=== PATIENT | female | born 1955 | race Caucasian/White ===

== ENCOUNTER 2017-03-23 00:28 | Day surgery (SDC) | payer MEDICARE, OTHER ==
[~2017-03-23 00:28] MED LIST: ALEN70 PO; AMAN100 PO; AZAT50 PO; BACL20 PO; DOCU100 PO; ERGO50000 PO; FISH1000 PO; Flonase 0.05% N16 GM; GABA300 PO; HYDACE5 PO; IBUP600 PO; IBUP800 PO; LEVFLO500 PO; LISI20 PO; METPHE10 PO; MIRT15ST MM; Norco 5-325 Ta1 EACH PO; OXYB5 PO; PANT40 PO; PRAV20 PO; SOLUMEDROL
[2017-09-08] MEDS ORDERED: Solu-Medrol1000 MG IV (11:57)
== END 2017-03-23 11:48 | disposition home or self-care (01) ==
LOC: ATC 00:28
DX: G35 Multiple sclerosis (principal)
CPT/HCPCS: 96365; J1642; J2930

== ENCOUNTER 2017-04-13 00:27 | Day surgery (SDC) | payer MEDICARE, OTHER ==
[2017-09-08] MEDS ORDERED: Solu-Medrol1000 MG IV (11:57)
== END 2017-04-13 11:06 | disposition home or self-care (01) ==
LOC: ATC 00:27
DX: G35 Multiple sclerosis (principal); Z79.899 Other long term (current) drug therapy
CPT/HCPCS: 96365; J1642; J2930

== ENCOUNTER 2017-05-05 00:10 | Day surgery (SDC) | payer MEDICARE, OTHER ==
[2017-09-08] MEDS ORDERED: Solu-Medrol1000 MG IV (11:57)
== END 2017-05-05 12:03 | disposition home or self-care (01) ==
LOC: ATC 00:10
DX: G35 Multiple sclerosis (principal)
CPT/HCPCS: 96365; J1642; J2930

== ENCOUNTER 2017-05-25 00:22 | Day surgery (SDC) | payer MEDICARE, OTHER ==
[2017-09-08] MEDS ORDERED: Solu-Medrol1000 MG IV (11:57)
== END 2017-05-25 11:33 | disposition home or self-care (01) ==
LOC: ATC 00:22
DX: G35 Multiple sclerosis (principal)
CPT/HCPCS: 96365; J1642; J2930

== ENCOUNTER 2017-07-07 01:03 | Day surgery (SDC) | payer MEDICARE, OTHER | END 2017-07-07 11:38 | disposition home or self-care (01) | LOC: ATC 01:03 | DX: G35 Multiple sclerosis (principal); Z79.899 Other long term (current) drug therapy | CPT/HCPCS: J1642; J2930 ==

== ENCOUNTER 2017-07-27 00:28 | Day surgery (SDC) | payer MEDICARE, OTHER | END 2017-07-27 11:39 | disposition home or self-care (01) | LOC: ATC 00:28 | DX: G35 Multiple sclerosis (principal); I10 Essential (primary) hypertension; E78.5 Hyperlipidemia, unspecified | CPT/HCPCS: 96365; J1642; J2930 ==

== ENCOUNTER 2017-08-17 00:37 | Day surgery (SDC) | payer MEDICARE, OTHER | END 2017-08-17 11:20 | disposition home or self-care (01) | LOC: ATC 00:37 | DX: G35 Multiple sclerosis (principal); I10 Essential (primary) hypertension; E78.5 Hyperlipidemia, unspecified | CPT/HCPCS: 96365; J1642; J2930 ==

== ENCOUNTER 2017-11-30 00:49 | Day surgery (SDC) | payer MEDICARE, OTHER ==
[~2017-11-30 00:49] MED LIST changes: +Solu-Medrol1000 MG IV
== END 2017-11-30 11:29 | disposition home or self-care (01) ==
LOC: ATC 00:49
DX: G35 Multiple sclerosis (principal)
CPT/HCPCS: 96365; J1642; J2930

== ENCOUNTER 2018-02-22 00:46 | Day surgery (SDC) | payer MEDICARE, OTHER | END 2018-02-22 12:00 | disposition home or self-care (01) | LOC: ATC 00:46 | DX: G35 Multiple sclerosis (principal); Z79.899 Other long term (current) drug therapy | CPT/HCPCS: 96365; J1642; J2930 ==

== ENCOUNTER 2018-03-15 00:14 | Day surgery (SDC) | payer MEDICARE, OTHER | END 2018-03-15 11:18 | disposition home or self-care (01) | LOC: ATC 00:14 | DX: G35 Multiple sclerosis (principal); Z79.899 Other long term (current) drug therapy | CPT/HCPCS: 96365; J1642; J2930 ==

== ENCOUNTER 2018-04-05 00:12 | Day surgery (SDC) | payer MEDICARE, OTHER | END 2018-04-05 11:27 | disposition home or self-care (01) | LOC: ATC 00:12 | DX: G35 Multiple sclerosis (principal); Z79.899 Other long term (current) drug therapy | CPT/HCPCS: 96365; J1642; J2930 ==

== ENCOUNTER 2018-04-26 00:23 | Day surgery (SDC) | payer MEDICARE, OTHER | END 2018-04-26 11:40 | disposition home or self-care (01) | LOC: ATC 00:23 | DX: G35 Multiple sclerosis (principal); Z79.899 Other long term (current) drug therapy; I10 Essential (primary) hypertension; E78.5 Hyperlipidemia, unspecified; M81.0 Age-related osteoporosis without current pathological fracture; F32.9 Major depressive disorder, single episode, unspecified; F17.210 Nicotine dependence, cigarettes, uncomplicated | CPT/HCPCS: 96365; J1642; J2930 ==

== ENCOUNTER 2018-05-17 00:09 | Day surgery (SDC) | payer MEDICARE, OTHER | END 2018-05-17 11:10 | disposition home or self-care (01) | LOC: ATC 00:09 | DX: G35 Multiple sclerosis (principal); Z79.899 Other long term (current) drug therapy | CPT/HCPCS: 96365; J1642; J2930 ==

== ENCOUNTER 2018-07-19 00:05 | Day surgery (SDC) | payer MEDICARE, OTHER ==
[2018-07-19] MEDS ORDERED: BUPR75 PO (11:32)
== END 2018-07-19 23:01 | disposition home or self-care (01) ==
LOC: ATC 00:05
DX: G35 Multiple sclerosis (principal); I10 Essential (primary) hypertension; E78.5 Hyperlipidemia, unspecified; Z79.899 Other long term (current) drug therapy; Z88.5 Allergy status to narcotic agent
CPT/HCPCS: 96365; J1642; J2930

== ENCOUNTER 2018-08-30 00:04 | Day surgery (SDC) | payer MEDICARE, OTHER ==
[~2018-08-30 00:04] MED LIST changes: +BUPR75 PO
== END 2018-08-30 11:17 | disposition home or self-care (01) ==
LOC: ATC 00:04
DX: G35 Multiple sclerosis (principal); E78.5 Hyperlipidemia, unspecified; I10 Essential (primary) hypertension; F17.210 Nicotine dependence, cigarettes, uncomplicated; Z79.899 Other long term (current) drug therapy
CPT/HCPCS: 96365; J1642; J2930

== ENCOUNTER → 2018-09-14 | Outpatient (CLI) | payer MEDICARE, OTHER | END | disposition home or self-care (01) | LOC: LAB SHORT 08:03 → PLD 08:03 | DX: L98.9 Disorder of the skin and subcutaneous tissue, unspecified (principal); L57.0 Actinic keratosis | CPT/HCPCS: 88305 ==

== ENCOUNTER 2018-09-20 00:44 | Day surgery (SDC) | payer MEDICARE, OTHER | END 2018-09-20 12:12 | disposition home or self-care (01) | LOC: ATC 00:44 | DX: G35 Multiple sclerosis (principal); E55.9 Vitamin D deficiency, unspecified; E78.5 Hyperlipidemia, unspecified; F32.9 Major depressive disorder, single episode, unspecified; I10 Essential (primary) hypertension; J44.9 Chronic obstructive pulmonary disease, unspecified; F17.210 Nicotine dependence, cigarettes, uncomplicated; Z79.1 Long term (current) use of non-steroidal anti-inflammatories (NSAID); Z79.51 Long term (current) use of inhaled steroids; Z79.899 Other long term (current) drug therapy; Z88.5 Allergy status to narcotic agent; Z66 Do not resuscitate | CPT/HCPCS: 96365; J1642; J2930 ==

== ENCOUNTER 2018-10-11 00:09 | Day surgery (SDC) | payer MEDICARE, OTHER | END 2018-10-11 11:47 | disposition home or self-care (01) | LOC: ATC 00:09 | DX: G35 Multiple sclerosis (principal); E78.5 Hyperlipidemia, unspecified; E55.9 Vitamin D deficiency, unspecified; F32.9 Major depressive disorder, single episode, unspecified; K59.00 Constipation, unspecified; Z79.899 Other long term (current) drug therapy | CPT/HCPCS: 96365; J1642; J2930 ==

== ENCOUNTER 2018-11-01 00:21 | Day surgery (SDC) | payer MEDICARE, OTHER ==
--- NOTE | 2018-11-01 11:18 | NUR ---
STOP TIME FOR SOLUMEDROL:" 1115
== END 2018-11-01 11:15 | disposition home or self-care (01) ==
LOC: ATC 00:21
DX: G35 Multiple sclerosis (principal); E78.5 Hyperlipidemia, unspecified; Z79.899 Other long term (current) drug therapy
CPT/HCPCS: 96365; J1642; J2930

== ENCOUNTER 2018-11-22 00:07 | Day surgery (SDC) | payer MEDICARE, OTHER | END 2018-11-22 11:20 | disposition home or self-care (01) | LOC: ATC 00:07 | DX: G35 Multiple sclerosis (principal); I10 Essential (primary) hypertension; E78.5 Hyperlipidemia, unspecified; Z79.899 Other long term (current) drug therapy; Z88.5 Allergy status to narcotic agent | CPT/HCPCS: 96365; J1642; J2930 ==

== ENCOUNTER 2018-12-13 00:42 | Day surgery (SDC) | payer MEDICARE, OTHER | END 2018-12-13 11:28 | disposition home or self-care (01) | LOC: ATC 00:42 | DX: G35 Multiple sclerosis (principal); E78.5 Hyperlipidemia, unspecified; J44.9 Chronic obstructive pulmonary disease, unspecified; Z79.899 Other long term (current) drug therapy; Z87.891 Personal history of nicotine dependence | CPT/HCPCS: 96365; J1642; J2930 ==

== ENCOUNTER 2019-01-03 00:16 | Day surgery (SDC) | payer MEDICARE, OTHER | END 2019-01-03 12:00 | disposition home or self-care (01) | LOC: ATC 00:16 | DX: G35 Multiple sclerosis (principal); F32.9 Major depressive disorder, single episode, unspecified; E78.5 Hyperlipidemia, unspecified; I10 Essential (primary) hypertension; F90.9 Attention-deficit hyperactivity disorder, unspecified type; J44.9 Chronic obstructive pulmonary disease, unspecified; F17.210 Nicotine dependence, cigarettes, uncomplicated; Z88.5 Allergy status to narcotic agent; Z91.048 Other nonmedicinal substance allergy status; Z79.899 Other long term (current) drug therapy | CPT/HCPCS: 96374; J1642; J2930 ==

== ENCOUNTER 2019-01-24 00:04 | Day surgery (SDC) | payer MEDICARE, OTHER | END 2019-01-24 11:34 | disposition home or self-care (01) | LOC: ATC 00:04 | DX: G35 Multiple sclerosis (principal); I10 Essential (primary) hypertension; J44.9 Chronic obstructive pulmonary disease, unspecified; E78.5 Hyperlipidemia, unspecified; F32.9 Major depressive disorder, single episode, unspecified; F90.9 Attention-deficit hyperactivity disorder, unspecified type; F17.210 Nicotine dependence, cigarettes, uncomplicated; Z79.899 Other long term (current) drug therapy; Z88.5 Allergy status to narcotic agent; Z91.048 Other nonmedicinal substance allergy status | CPT/HCPCS: 96365; J1642; J2930 ==

== ENCOUNTER 2019-02-14 07:09 | Day surgery (SDC) | payer MEDICARE, OTHER | END 2019-02-14 11:32 | disposition home or self-care (01) | LOC: ATC 07:09 | DX: G35 Multiple sclerosis (principal); I10 Essential (primary) hypertension; J44.9 Chronic obstructive pulmonary disease, unspecified; M81.0 Age-related osteoporosis without current pathological fracture; E55.9 Vitamin D deficiency, unspecified; E78.5 Hyperlipidemia, unspecified; F32.9 Major depressive disorder, single episode, unspecified; F90.9 Attention-deficit hyperactivity disorder, unspecified type; F17.210 Nicotine dependence, cigarettes, uncomplicated; Z79.899 Other long term (current) drug therapy; Z88.5 Allergy status to narcotic agent; Z91.048 Other nonmedicinal substance allergy status | CPT/HCPCS: 96365; J1642; J2930 ==

== ENCOUNTER 2019-03-07 00:04 | Day surgery (SDC) | payer MEDICARE, OTHER | END 2019-03-07 11:12 | disposition home or self-care (01) | LOC: ATC 00:04 | DX: G35 Multiple sclerosis (principal); I10 Essential (primary) hypertension; J44.9 Chronic obstructive pulmonary disease, unspecified; M81.0 Age-related osteoporosis without current pathological fracture; E55.9 Vitamin D deficiency, unspecified; E78.5 Hyperlipidemia, unspecified; F32.9 Major depressive disorder, single episode, unspecified; F90.9 Attention-deficit hyperactivity disorder, unspecified type; F17.210 Nicotine dependence, cigarettes, uncomplicated; Z88.5 Allergy status to narcotic agent; Z88.8 Allergy status to other drugs, medicaments and biological substances; Z99.3 Dependence on wheelchair; Z79.82 Long term (current) use of aspirin; Z79.1 Long term (current) use of non-steroidal anti-inflammatories (NSAID); Z79.899 Other long term (current) drug therapy | CPT/HCPCS: 96365; J1642; J2930 ==

== ENCOUNTER 2019-03-28 00:10 | Day surgery (SDC) | payer MEDICARE, OTHER | END 2019-03-28 11:26 | disposition home or self-care (01) | LOC: ATC 00:10 | DX: G35 Multiple sclerosis (principal); I10 Essential (primary) hypertension; J44.9 Chronic obstructive pulmonary disease, unspecified; E78.5 Hyperlipidemia, unspecified; E55.9 Vitamin D deficiency, unspecified; F32.9 Major depressive disorder, single episode, unspecified; F90.9 Attention-deficit hyperactivity disorder, unspecified type; K59.00 Constipation, unspecified; M81.0 Age-related osteoporosis without current pathological fracture; F17.210 Nicotine dependence, cigarettes, uncomplicated; R35.0 Frequency of micturition; E78.00 Pure hypercholesterolemia, unspecified; M40.209 Unspecified kyphosis, site unspecified; F41.9 Anxiety disorder, unspecified; Z79.82 Long term (current) use of aspirin; Z79.899 Other long term (current) drug therapy; Z88.5 Allergy status to narcotic agent; Z88.8 Allergy status to other drugs, medicaments and biological substances | CPT/HCPCS: 96365; J1642; J2930 ==

== ENCOUNTER 2019-05-09 00:14 | Day surgery (SDC) | payer MEDICARE, OTHER ==
--- NOTE | 2019-05-09 11:34 | NUR ---
PT REPORTS NOT FEELING WELL TODAY. T=98.4, WHICH PT REPORTS IS A "FEVER" FOR HER. NORMAL TEMP PER PT AROUND 96.
== END 2019-05-09 11:40 | disposition home or self-care (01) ==
LOC: ATC 00:14
DX: G35 Multiple sclerosis (principal); I10 Essential (primary) hypertension; F32.9 Major depressive disorder, single episode, unspecified; E78.5 Hyperlipidemia, unspecified; F17.210 Nicotine dependence, cigarettes, uncomplicated; J44.9 Chronic obstructive pulmonary disease, unspecified; Z79.899 Other long term (current) drug therapy; Z88.5 Allergy status to narcotic agent
CPT/HCPCS: J1642; J2930

== ENCOUNTER 2019-05-12 09:47 | Inpatient (IN) | payer MEDICARE, OTHER ==
[~2019-05-12] VITALS: Ht 165.1 cm; Wt 76.1 kg
[2019-05-12 10:54] LABS: Hematocrit 39.4 % (33.0-51.0); Hemoglobin 12.7 g/dL (11.5-16.0); Mean Corpuscular HGB 31.1 pg (26.0-34.0); Mean Corpuscular HGB Conc 32.2 g/dL (31.5-36.5); Mean Corpuscular Volume 97 fL (80-100); Mean Platelet Volume 10.4 fL (9.1-12.4); Platelet Count 300 K/mm3 (150-400); RDW Coefficient Variation 15.9 % (11.7-14.2); RDW Standard Deviation 56.4 fL (35.1-46.3); Red Blood Cell Count 4.08 M/mm3 (3.80-5.20); White Blood Cell Count 9.95 K/mm3 (4.00-11.30)
[2019-05-12 11:11] LABS: Alanine Aminotransfer (ALT/SGP 60 U/L (12-78); Albumin/Globulin Ratio 0.7 (0.8-1.8); Alk Phos 98 U/L (50-136); Anion Gap 11 mmol/L (6-16); Aspartate Aminotrans (AST/SGOT 40 U/L (12-37); Bilirubin, Total 0.6 mg/dL (0.1-1.0); Blood Urea Nitrogen 12 mg/dL (8-24); Bun/Creatinine Ratio 22.8 (12.0-20.0); CO2, Blood 22 mmol/L (21-32); Calcium, Blood 8.7 mg/dL (8.5-10.1); Chloride, Blood 107 mmol/L (98-108); Creatinine, Blood 0.53 mg/dL (0.40-1.00); Globulin, Blood 4.4 g/dL (2.2-4.0); Glomerular Filtration Rate >60 (60-); Glucose, Blood 100 mg/dL (70-99); Potassium, Blood 3.4 mmol/L (3.5-5.5); Sodium, Blood 140 mmol/L (136-145); Total Protein, Blood 7.4 g/dL (6.4-8.2)
[2019-05-12 11:22] LABS: BAND PERCENT MAN 17 % (0-8); BASOPHILS PERCENT MAN 0 % (0-2); EOSINOPHILS PERCENT MAN 0 % (0-6); LYMPHOCYTES ABSOLUTE MAN 1.19 K/mm3 (0.84-5.20); LYMPHOCYTES PERCENT MAN 12 % (21-46); MONOCYTES ABSOLUTE MAN 0.69 K/mm3 (0.16-1.47); MONOCYTES PERCENT MAN 7 % (4-13); NEUTROPHILS ABSOLUTE MAN 8.05 K/mm3 (1.96-9.15); SEG NEUTROPHILS PERCENT MAN 64 % (41-73); TOTAL CELLS COUNTED 100
[2019-05-12] MEDS ORDERED: PEPCID40 MG PO (12:25)
[2019-05-12] MEDS ORDERED: BUPROPION XL150 M1 PO (12:25)
[2019-05-12] MEDS ORDERED: METPHE20 PO (12:26)
[2019-05-12 12:37] LABS: Adenovirus Not Detected (NOT DETECT); Bordetella pertussis Not Detected (NOT DETECT); Chlamydophila pneumoniae Not Detected (NOT DETECT); Coronavirus 229E Not Detected (NOT DETECT); Coronavirus HKU1 Not Detected (NOT DETECT); Coronavirus NL63 Not Detected (NOT DETECT); Coronavirus OC43 Not Detected (NOT DETECT); Human Metapneumovirus Detected (NOT DETECT); Human Rhinovirus/Enterovirus Not Detected (NOT DETECT); Influenza A/2009-H1 Not Detected (NOT DETECT); Influenza A/H1 Not Detected (NOT DETECT); Influenza A/H3 Not Detected (NOT DETECT); Influenza B Not Detected (NOT DETECT); Mycoplasma pneumoniae Not Detected (NOT DETECT); Parainfluenza Virus 1 Not Detected (NOT DETECT); Parainfluenza Virus 2 Not Detected (NOT DETECT); Parainfluenza Virus 3 Not Detected (NOT DETECT); Parainfluenza Virus 4 Not Detected (NOT DETECT); Respiratory Syncytial Virus Not Detected (NOT DETECT)
[2019-05-12] MEDS ORDERED: IBUP800 PO (21:54)
[2019-05-12] MEDS ORDERED: Aspirin EC81 MG PO (21:56)
--- NOTE | 2019-05-13 04:26 | NUR ---
SHIFT SUMMARY ASSUMED CARE OF PT AT 1999. PT IS A/O X4, DENIES N/T IN EXTREMITIES. HEART SOUNDS REGULAR, TELE SHOWS SINUS AT 72, DENIES CP AT THIS TIME. LUNG SOUNDS CRACKLES AT THE BASES AND SLIGHT WHEEZES T/O, PT ON 2L NC, NORMALLY ON RA, PT STATES THAT SHE IS HAVING SOME SOB. PT IS TOTALLY DEPENDENT FOR CARE, PT HAS A ARCHITECTURAL DRAFTER DURING THE DAY. PT IS INCONTINENT OF BLADDER AND BOWEL. PT HAS BEEN HAVING HOT AND COLD FLASHES, PT STATES THAT SHE HAS THEM AT HOME BUT NOT TO THIS EXTREME. PT SLEPT T/O THE NIGHT, NO ACUTE CHANGES. CALL LIGHT IN REACH, BED IN LOWEST POSTION, WILL CONTINUE TO MONITOR UNTIL DAYSHIFT NURSE ARRIVES.
[2019-05-13 05:56] LABS: Hematocrit 36.6 % (33.0-51.0); Hemoglobin 11.6 g/dL (11.5-16.0); Mean Corpuscular HGB 30.7 pg (26.0-34.0); Mean Corpuscular HGB Conc 31.7 g/dL (31.5-36.5); Mean Corpuscular Volume 97 fL (80-100); Mean Platelet Volume 10.8 fL (9.1-12.4); Platelet Count 275 K/mm3 (150-400); RDW Coefficient Variation 16.2 % (11.7-14.2); RDW Standard Deviation 58.8 fL (35.1-46.3); Red Blood Cell Count 3.78 M/mm3 (3.80-5.20); White Blood Cell Count 12.95 K/mm3 (4.00-11.30)
[2019-05-13 06:15] LABS: BAND PERCENT MAN 18 % (0-8); BASOPHILS PERCENT MAN 0 % (0-2); EOSINOPHILS PERCENT MAN 0 % (0-6); LYMPHOCYTES ABSOLUTE MAN 1.81 K/mm3 (0.84-5.20); LYMPHOCYTES PERCENT MAN 14 % (21-46); MONOCYTES ABSOLUTE MAN 0.51 K/mm3 (0.16-1.47); MONOCYTES PERCENT MAN 4 % (4-13); NEUTROPHILS ABSOLUTE MAN 10.61 K/mm3 (1.96-9.15); SEG NEUTROPHILS PERCENT MAN 64 % (41-73); TOTAL CELLS COUNTED 100
[2019-05-13 06:23] LABS: Alanine Aminotransfer (ALT/SGP 54 U/L (12-78); Albumin, Blood 2.6 g/dL (3.4-5.0); Albumin/Globulin Ratio 0.6 (0.8-1.8); Alk Phos 79 U/L (50-136); Anion Gap 11 mmol/L (6-16); Aspartate Aminotrans (AST/SGOT 39 U/L (12-37); Bilirubin, Total 0.5 mg/dL (0.1-1.0); Blood Urea Nitrogen 15 mg/dL (8-24); Bun/Creatinine Ratio 35.3 (12.0-20.0); CO2, Blood 21 mmol/L (21-32); Calcium, Blood 8.5 mg/dL (8.5-10.1); Chloride, Blood 110 mmol/L (98-108); Creatinine, Blood 0.43 mg/dL (0.40-1.00); Globulin, Blood 4.3 g/dL (2.2-4.0); Glomerular Filtration Rate >60 (60-); Glucose, Blood 65 mg/dL (70-99); Potassium, Blood 3.8 mmol/L (3.5-5.5); Sodium, Blood 142 mmol/L (136-145); Total Protein, Blood 6.9 g/dL (6.4-8.2)
--- NOTE | 2019-05-13 17:52 | NUR ---
SHIFT SUMMARY- PT IS A/O, PLESANT AND COOPERATIVE. SHE IS GOING BETWEEN BEING HOT AND COLD. SHE STATES THAT SHE DOES NOT FEEL GOOD TODAY. SHE IS RECIEVING IV ANTIBIOTICS. SPOKE WITH DR. SHARP ABOUT HER IMURAN AND HE IS HOLDING IT WHILE SHE IS FIGHTING INFECTION, PT INFORMED. PRN TYLENOL ORDERED FOR HEADACHE SHE HAD DURING THIS SHIFT, WHICH RESOLOVED WITH MEDICATION. PT HAD A BM, AND IS INCONTINENT OF URINE. SHE HAS A POOR APPETITE.
--- NOTE | 2019-05-14 04:26 | NUR ---
PT WAS SOB AT BEGINNING OF SHIFT. PT WAS ON 2L O2 BUT HAD TO BE INCREASED TO 6L. BREATHING TREATMENT GIVEN PER RT. PT STATED SHE FELT MUCH BETTER AFTER THE BREATHING TREATMENT AND SHE COULD BREATHE "DEEPER". DENIES PAIN, NAUSEA, SOB. PER DAY NURSE, PT HAS BEEN HOT AND COLD OFF AND ON. PT HAS BEEN PRESENTING THE SAME SYMPTOMS ON THIS SHIFT TOO. PT GIVEN TRAZADONE TO HELP HER SLEEP SHE DID NOT RECIEVE MUCH SLEEP THE NIGHT PRIOR PER DAY NURSE. PT SLEPT OFF AND ON TONIGHT. 0330 PT WAS DYSPNEIC WITH RR OF 24, ELEVATED BLOOD PRESSURE, ELEVATED HR, AND PULSE OX OF 88% ON 6L. RT SAW PT AND GAVE PT A BREATHING TREATMENT. PT IS NOT ON CONT BI-OX AND CURRENTLY ON 10L SATTING AT 92% LUNG SOUNDS COARSE THROUGHOUT. HOSPITTALIST DR. GARCIA NOTIFIED. IV LASIX 40MG QID ORDERED.
[2019-05-14 05:45] LABS: Hematocrit 42.1 % (33.0-51.0); Hemoglobin 13.4 g/dL (11.5-16.0); Mean Corpuscular HGB 30.5 pg (26.0-34.0); Mean Corpuscular HGB Conc 31.8 g/dL (31.5-36.5); Mean Corpuscular Volume 96 fL (80-100); Mean Platelet Volume 10.7 fL (9.1-12.4); Platelet Count 286 K/mm3 (150-400); RDW Coefficient Variation 16.3 % (11.7-14.2); RDW Standard Deviation 58.1 fL (35.1-46.3); White Blood Cell Count 11.68 K/mm3 (4.00-11.30)
[2019-05-14 06:06] LABS: Albumin, Blood 2.8 g/dL (3.4-5.0); Anion Gap 20 mmol/L (6-16); Blood Urea Nitrogen 13 mg/dL (8-24); Bun/Creatinine Ratio 24.9 (12.0-20.0); CO2, Blood 15 mmol/L (21-32); Calcium, Blood 9.2 mg/dL (8.5-10.1); Chloride, Blood 104 mmol/L (98-108); Creatinine, Blood 0.52 mg/dL (0.40-1.00); Glomerular Filtration Rate >60 (60-); Glucose, Blood 52 mg/dL (70-99); Magnesium, Blood 2.2 mg/dL (1.6-2.4); Phosphorus, Blood 2.3 mg/dL (2.5-4.9); Potassium, Blood 3.4 mmol/L (3.5-5.5); Sodium, Blood 139 mmol/L (136-145); Troponin I <0.015 ng/mL (0.000-0.040)
[2019-05-14 06:42] LABS: BAND PERCENT MAN 8 % (0-8); BASOPHILS PERCENT MAN 0 % (0-2); EOSINOPHILS ABSOLUTE MAN 0.11 K/mm3 (0.00-0.68); EOSINOPHILS PERCENT MAN 1 % (0-6); LYMPHOCYTES ABSOLUTE MAN 0.81 K/mm3 (0.84-5.20); LYMPHOCYTES PERCENT MAN 7 % (21-46); MONOCYTES PERCENT MAN 6 % (4-13); NEUTROPHILS ABSOLUTE MAN 10.04 K/mm3 (1.96-9.15); SEG NEUTROPHILS PERCENT MAN 78 % (41-73); TOTAL CELLS COUNTED 100
--- NOTE | 2019-05-14 08:35 | NUR ---
made dr aware of current vital signs. dr. carrion states he will "see her next"
[2019-05-14 09:35] LABS: PCO2 Arterial 26.3 mmHg (35-45)
--- NOTE | 2019-05-14 10:10 | NUR ---
LATE ENTRY RECEIVED TELEPHONE REPORT FORM TONY MARTINEZ ON MEDICAL FLOOR; PT TO ROOM WITH ANGEL AND Jani GARCIA FROM MEDICAL FLOOR AT 0945. PT WET ON ARRIVAL TO ROOM, PT CLEANED AND 3 PERSON TRANSFER WITH SLIDER SHEET. PT TO ROOM ON 10L O2 VIA NRB; COARSE T/O, SHOWLLOW BREATHING, AND TACHYPNIC. RT TO ROOM PLACED CPAP WITH 10L BLEED IN. PT BP 99/74 HR 136, RESP 34, 92% SPO2; REASSMENT OF BP 75/40 HR 124; WEIGHER AND GRADER MARSHALL LEAL AT BEDSIDE; NOTIIFED DR SHARP, NEW ORDERS FOR FLUID BOLUS. NOTIFIED DR SHARP OF BLOOD GLUCOSE AND REQUEST BARTON FOR STRICT I&O. PT REFUSED BARTON CATHETER, PT INCONTINENT, ATTENDS IN PLACE. PT BLE MOTTLED FROM HIP DOWN; COOL TO TOUCH AND PALE WITH FAINT PULSES. PT LUE MINIMAL MOVEMENT AND WEAK; NO MOVEMENT NOTED INE BLE AND LUE. WILL CONTINUE TO MONITOR.
--- NOTE | 2019-05-14 18:19 | NUR ---
LATE ENTRY - 1230 PT DESATURATES WITH ACTIVITY IN BED; TITRATED TO 12L ON CPAP FOR RECOVERY. PT BP TRENDING UP WITH MAINTAINENCE FLUIDS, HELD BOLUS THIS AM AFTER DISCUSSING WITH CARDIOTHORACIC SURGEON. HR REMAIN 110-130'S SINUS TACH. WILL CONTINUE TO MONITOR.
--- NOTE | 2019-05-14 18:23 | NUR ---
SHIFT SUMMARY PT A&Ox3; ANXIOUS AT TIMES, R/T RESPIRATORY STATUS AND CPAP. PT REPORTS MILD PAIN THIS AM IN SHOULDER AND BACK, PREVIOUS MEDICATED ON MEDICAL UNITL AND DENIES NEED FOR MEDICATION FOR REMAINDER OF SHIFT. PT SOB AT REST; WEARING CPAP WITH 10-12L BLEED IN T/O SHIFT, LS COARSE FOR MAJORITY OF SHIFT, NOTED WHEEZES AT TIMES. PT TAKES BREAKS ON NRB. PT DENIES CHEST PAIN, NAUSEA AND DIZZINESS FOR MAJORITY OF SHIFT. THIS AM PT BLE MOTTLED NOTED; PT STATES NORMAL FOR HER; CAREGIVER THIS EVENING STATES IT IS NOT NORMAL, THIS RN NOTED MOTTLEING TO BUE; NOTIIFED DR SHARP AT 1630 OF CHANGE, NO NEW ORDERS. TELE HR 110-130'S, NOTIIFED DR SHARP THIS EVENING; NEW ORDERS FOR FLUID BOLUS; ADMINISTERED. ATTEMPTED TO REPOSITION PATIENT T/O SHIFT, PT REFUSING PERFERING TO STAY IN ONE POSITION THAT IS COMFORTABLE. ATTEMPTED TO PLACE BAROTN; PT REFUSED, STATING SHE DOES NOT WANT ONE. NO OTHER ACUTE CHANGES NOTED; WILL CONTINUE TO MONITOR.
--- NOTE | 2019-05-14 20:10 | NUR ---
PLACE ON BIPAP FROM CPAP DUE TO RR IN THE 40'S AND SAT DROPPING TO LOW 80'S BEFORE PT CAN RECOVER. SET AT 10/5, 14, 60% FIO2. TOLERATING WELL. WILL CONTINUE TO MONITOR.
--- NOTE | 2019-05-14 20:17 | NUR ---
REPOSITIONED AFTER BEING PLACED ON BIPAP WITH FI02 AT 60% AT 10/5. SAFETY MEASURES IN PLACE. WILL CONTINUE TO MONITOR.
--- NOTE | 2019-05-14 23:15 | NUR ---
FIO2 CHANGED TO 75% D/T DESATING INTO THE MID TO HIGH 80'S AND HR IN THE 150'S TO 160'S. TOLERATING WELL. SAFETY MEASUES IN PLACE. WILL CONTINUE TO MONITOR.
--- NOTE | 2019-05-14 23:20 | NUR ---
Roxy CASTRO, SNOUT PULLER AT BEDSIDE D/T PT CONTINUED DECLINE. PT REITERATES DNR/DNI STATUS, AND REFUSES OFFER FIR COMFORT AND PAIN MANAGEMENT. REFUSES TO ALLOW NURSING TO CONTACT FAMILY OR CAREGIVER WELL, STAES THAT HER CAREGIVER WILL BE BY IN THE MORNING. SAFETY MEASURES IN PLACE. WILL CONTINUE TO MONITOR.
--- NOTE | 2019-05-15 00:30 | NUR ---
FIRST CALL PLACED TO MARY JANE PETER, CAREGIVER PER PT'S REQUEST SHE IS DECLINING. SHE HAS REFUSED OFFER TO CALL HER SON AT THIS TIME. SAFETY MEASURES IN PLACE. WILL CONTINUE TO MONITOR.
--- NOTE | 2019-05-15 01:00 | NUR ---
CONTINUES TO DESAT IN MID TO UPPER 80'S WITH ELEVATES HR 130'S TO 160'S. ASKED AGAIN IF SHE WOULD LIKE SOME PAIN MEDICATION, SHE STATED YES. CONTACTED MORGAN WOOTEN. NEW ORDERS NOTED. SAFETY MEASURES IN PLACE. WILL CONTINUE TO MONITOR.
--- NOTE | 2019-05-15 01:33 | NUR ---
SECOND CALL PLACED TO MARY JANE, VOICE MAIL LEFT. SAFETY MEASURES IN PLACE. WILL CONTINUE TO MONITOR.
--- NOTE | 2019-05-15 01:44 | NUR ---
SPOKE TO MARY JANE, CAREGIVER, STATES THAT SHE WOULD CALL THE PT'S SON AND UPDATE HIM. INFOMRED OF PT REQUEST THAT SHE COME SEE HER, VERBALIZED UNDERSTANDING. SAFETY MEASURES IN PLACE. WILL CONTINUE TO MONITOR.
--- NOTE | 2019-05-15 03:24 | NUR ---
MARY JANE, CAREGIVER AT BEDSIDE AFTER GIVING UPDATE. ASSISTING PT TO BE MORE COMFORTABLE. DENIES FURTHER NEEDS AT THIS TIME. SAFETY MEASURES IN PLACE. WILL CONTINUE TO MONITOR.
--- NOTE | 2019-05-15 04:02 | NUR ---
SHIFT SUMMARY PT CONTINUES ON BIPAP SET AT 10/5, 14, AND 75% FIO2. RR IMPROVED AT 30-35/MIN. WORK OF BREATHING HAS DECREASED, PT IS MORE AT EASE. STATES THAT SHE FEELS BETTER. REFUSES OFFER OF ANOTHER DOSE OF MORPHINE, STATES THAT SHE WILL ASK IF SHE FEELS THAT SHE NEEDS IT. CAREGIVER STALL AT BEDSIDE. SAFETY MEASURES IN PLACE. WILL CONTINUE TO MONITOR.
[2019-05-15 05:26] LABS: Hematocrit 40.3 % (33.0-51.0); Hemoglobin 12.8 g/dL (11.5-16.0); Mean Corpuscular HGB 30.7 pg (26.0-34.0); Mean Corpuscular HGB Conc 31.8 g/dL (31.5-36.5); Mean Corpuscular Volume 97 fL (80-100); Mean Platelet Volume 11.1 fL (9.1-12.4); NRBC ABSOLUTE 0.02 K/mm3 (0.00-0.02); NRBC Auto 0.1 /100 WBC (0.0-0.2); Platelet Count 405 K/mm3 (150-400); RDW Coefficient Variation 16.9 % (11.7-14.2); Red Blood Cell Count 4.17 M/mm3 (3.80-5.20); White Blood Cell Count 13.77 K/mm3 (4.00-11.30)
--- NOTE | 2019-05-15 05:44 | NUR ---
FIO2 INCREASED TO 80% PER RT.
[2019-05-15 05:45] LABS: Albumin, Blood 2.4 g/dL (3.4-5.0); Anion Gap 16 mmol/L (6-16); Blood Urea Nitrogen 18 mg/dL (8-24); Bun/Creatinine Ratio 37.7 (12.0-20.0); CO2, Blood 15 mmol/L (21-32); Calcium, Blood 8.8 mg/dL (8.5-10.1); Chloride, Blood 110 mmol/L (98-108); Creatinine, Blood 0.48 mg/dL (0.40-1.00); Glomerular Filtration Rate >60 (60-); Glucose, Blood 287 mg/dL (70-99); Magnesium, Blood 2.5 mg/dL (1.6-2.4); Phosphorus, Blood 2.9 mg/dL (2.5-4.9); Potassium, Blood 4.1 mmol/L (3.5-5.5); Sodium, Blood 141 mmol/L (136-145)
[2019-05-15 05:54] LABS: BAND PERCENT MAN 3 % (0-8); BASOPHILS PERCENT MAN 0 % (0-2); EOSINOPHILS PERCENT MAN 0 % (0-6); LYMPHOCYTES ABSOLUTE MAN 0.27 K/mm3 (0.84-5.20); LYMPHOCYTES PERCENT MAN 2 % (21-46); MONOCYTES ABSOLUTE MAN 0.68 K/mm3 (0.16-1.47); MONOCYTES PERCENT MAN 5 % (4-13); SEG NEUTROPHILS PERCENT MAN 90 % (41-73); TOTAL CELLS COUNTED 100
--- NOTE | 2019-05-15 19:58 | NUR ---
SHIFT SUMMARY: PT LETHARGIC AT THE BEGINNING OF THE SHIFT UNABLE TO STAY AWAKE, ALSO HAS REPORTED AGITATION/CONFUSION PER CAREGIVER ATTEMPTED TO GET OUT OF THE BED, LEFT SIDE RAILS WAS UP FOR SAFETY. PT ON BIPAP 80% OF O2 ALL THROUGHOUT THE SHIFT, PT DESATING WITH NRB MASK ON 15L UNABLE TO TOLERATE, PT WAS ABLE TO SWALLOW MEDS WITH APPLESAUCE ONE AT A TIME WITH SIPS OF WATER, NO ASPIRATION NOTED. PT CONTINUES ON D5NS 20MEQ K RUNNING AT 75MLS/HR FR HYDRATION VERIFIED WITH DR. SHARP. BLE AND BUE STILL MOTTLING, COMPRESSION STOCKINGS IN PLACE. PT STAYED IN BED ALL SHIFT. CAREGIVER AT BEDSIDE, SON WAS CONTACTED REGARDING PT'S CURRENT SITUATION. WILL MONITOR REPORT GIVEN TO ONCOMING SHIFT
[2019-05-16 05:02] LABS: BASOPHILS ABSOLUTE AUTO 0.05 K/mm3 (0.00-0.23); BASOPHILS PERCENT AUTO 0 % (0-2); EOSINOPHILS PERCENT AUTO 0 % (0-6); Hematocrit 36.2 % (33.0-51.0); Hemoglobin 11.9 g/dL (11.5-16.0); IMMATURE GRAN ABSOLUTE AUTO 0.24 K/mm3 (0.00-0.10); IMMATURE GRAN PERCENT AUTO 2 % (0-1); LYMPHOCYTES ABSOLUTE AUTO 0.51 K/mm3 (0.84-5.20); LYMPHOCYTES PERCENT AUTO 3 % (21-46); MONOCYTES ABSOLUTE AUTO 1.12 K/mm3 (0.16-1.47); MONOCYTES PERCENT AUTO 7 % (4-13); Mean Corpuscular HGB 30.8 pg (26.0-34.0); Mean Corpuscular HGB Conc 32.9 g/dL (31.5-36.5); Mean Platelet Volume 10.8 fL (9.1-12.4); NEUTROPHILS ABSOLUTE AUTO 14.58 K/mm3 (1.96-9.15); NEUTROPHILS PERCENT AUTO 88 % (41-73); NRBC ABSOLUTE 0.03 K/mm3 (0.00-0.02); NRBC Auto 0.2 /100 WBC (0.0-0.2); Platelet Count 331 K/mm3 (150-400); RDW Coefficient Variation 17.1 % (11.7-14.2); RDW Standard Deviation 58.9 fL (35.1-46.3); Red Blood Cell Count 3.86 M/mm3 (3.80-5.20)
[2019-05-16 05:03] LABS: Mean Corpuscular Volume 94 fL (80-100)
[2019-05-16 05:27] LABS: Alanine Aminotransfer (ALT/SGP 42 U/L (12-78); Albumin, Blood 2.1 g/dL (3.4-5.0); Albumin/Globulin Ratio 0.4 (0.8-1.8); Alk Phos 108 U/L (50-136); Anion Gap 10 mmol/L (6-16); Aspartate Aminotrans (AST/SGOT 53 U/L (12-37); Bilirubin, Total 0.4 mg/dL (0.1-1.0); Blood Urea Nitrogen 24 mg/dL (8-24); Bun/Creatinine Ratio 55.3 (12.0-20.0); CO2, Blood 21 mmol/L (21-32); Calcium, Blood 8.8 mg/dL (8.5-10.1); Chloride, Blood 112 mmol/L (98-108); Creatinine, Blood 0.43 mg/dL (0.40-1.00); Glomerular Filtration Rate >60 (60-); Glucose, Blood 135 mg/dL (70-99); Sodium, Blood 143 mmol/L (136-145); Total Protein, Blood 7.1 g/dL (6.4-8.2)
--- NOTE | 2019-05-16 07:23 | NUR ---
SHIFT SUMMARY PT A&O; DR. SEWELL AT BEDSIDE START OF SHIFT; MAKES NEEDS KNOWN; AT TIMES BECOMES FRUSTRATED W/ BIPAP; APPRECIATES BREAKS AND SIPS OF WATER WHEN APPROPRIATE; BIPAP ADJUSTED BY RT TO 16/8 FIO2 60%; MORPHINE GIVEN FOR PAIN/ WORK OF BREATHING; PT RESTS MUCH MORE COMFORTABLY W/ MORPHINE AND RESPIRATIONS RATE DECREASES; AM LABS REPORT OF LACTIC 2.4, THERAPIST RESPIRATORY PHYSICIAN NOTIFIED; NO NEW ORDERS GIVEN; LR INFUSING @ 150/HR; NOTE IN FRONT OF CHART FOR RED CROSS AND PHONE NUMBER TO CALL IF PT CONDITION WORSENS OR IF SHE PASSES IN ORDER TO CONTACT SON IN SERVICE; CALL LIGHT IN REACH; BED IN LOWEST POSITION; REPORT GIVEN TO DAY SHIFT RN.
--- NOTE | 2019-05-16 19:45 | NUR ---
ASSUMED CARE RECEIVED REPORT FROM TONY LORD. ASSUMED CARE OF PT. IN NO ACUTE DISTRESS AT THIS TIME, O2 SATS STABLE ON BIPAP, FIO2 55% AT THIS TIME. RESTING COMFORTABLY, DENIES ANY NEEDS AT THIS TIME. CALL LIGHT AND POSSESSIONS IN REACH, WILL CONTINUE TO MONITOR.
--- NOTE | 2019-05-16 20:02 | NUR ---
SHIFT SUMMARY: PT MORE ALERT TODAY, STILL IN BIPAP MOST OF THE SHIFT, STILL NOT ABLE TO TOLERATE OXYMIZER ON 15L, FLUIDS DC'D D/T FLUID BUILD UP, BP SYSTOLIC HAS BEEN ON THE 140'S. PT WAS ABLE TO TAKE MEDS WITH APPLESAUCE STILL NO MEAL INTAKE. ONE TIME ORDER RECEIVED FROM DR SCHWARTZ FOR IV LASIX 20MG, PT HAD DECENT AMOUNT OF URINE OUTPUT. PT STAYED IN BED ALL SHIFT, TURNED Q2 HRS, DENIES ANY PAIN, MORPHINE GIVEN X1 FOR AIR HUNGER/SOB. LACTIC ACID STILL ELEVATED AT 2.6 DR MCMILLAN AWARE. REPORT GIVEN TO ONCOMING SHIFT.
[2019-05-17 04:52] LABS: BASOPHILS ABSOLUTE AUTO 0.02 K/mm3 (0.00-0.23); BASOPHILS PERCENT AUTO 0 % (0-2); EOSINOPHILS PERCENT AUTO 0 % (0-6); Hemoglobin 12.1 g/dL (11.5-16.0); IMMATURE GRAN ABSOLUTE AUTO 0.16 K/mm3 (0.00-0.10); IMMATURE GRAN PERCENT AUTO 2 % (0-1); LYMPHOCYTES ABSOLUTE AUTO 0.49 K/mm3 (0.84-5.20); LYMPHOCYTES PERCENT AUTO 5 % (21-46); MONOCYTES ABSOLUTE AUTO 0.57 K/mm3 (0.16-1.47); MONOCYTES PERCENT AUTO 6 % (4-13); Mean Corpuscular HGB 30.6 pg (26.0-34.0); Mean Corpuscular HGB Conc 33.6 g/dL (31.5-36.5); Mean Platelet Volume 11.3 fL (9.1-12.4); NEUTROPHILS ABSOLUTE AUTO 9.08 K/mm3 (1.96-9.15); NEUTROPHILS PERCENT AUTO 88 % (41-73); NRBC ABSOLUTE 0.07 K/mm3 (0.00-0.02); NRBC Auto 0.7 /100 WBC (0.0-0.2); Platelet Count 317 K/mm3 (150-400); RDW Coefficient Variation 16.6 % (11.7-14.2); Red Blood Cell Count 3.95 M/mm3 (3.80-5.20); White Blood Cell Count 10.32 K/mm3 (4.00-11.30)
[2019-05-17 04:56] LABS: Mean Corpuscular Volume 91 fL (80-100)
[2019-05-17 05:24] LABS: Alanine Aminotransfer (ALT/SGP 68 U/L (12-78); Albumin, Blood 2.3 g/dL (3.4-5.0); Albumin/Globulin Ratio 0.5 (0.8-1.8); Alk Phos 117 U/L (50-136); Anion Gap 11 mmol/L (6-16); Aspartate Aminotrans (AST/SGOT 82 U/L (12-37); Bilirubin, Total 0.6 mg/dL (0.1-1.0); Blood Urea Nitrogen 33 mg/dL (8-24); CO2, Blood 25 mmol/L (21-32); Calcium, Blood 8.8 mg/dL (8.5-10.1); Chloride, Blood 106 mmol/L (98-108); Creatinine, Blood 0.54 mg/dL (0.40-1.00); Globulin, Blood 4.8 g/dL (2.2-4.0); Glomerular Filtration Rate >60 (60-); Glucose, Blood 156 mg/dL (70-99); Potassium, Blood 3.2 mmol/L (3.5-5.5); Sodium, Blood 142 mmol/L (136-145); Total Protein, Blood 7.1 g/dL (6.4-8.2)
--- NOTE | 2019-05-17 06:31 | NUR ---
SHIFT SUMMARY PT RESTING COMFORTABLY AT THIS TIME, NO ACUTE DISTRESS NOTED. WAS MONITORED EVERY 1-2 HOURS WITH NEEDS MET, DENIES ANY FURTHER NEEDS AT THIS TIME, ATTEMPTING TO GO BACK TO SLEEP. VS STABLE T/O NIGHT. CALL LIGHT IN REACH, WILL CONTINUE TO MONITOR UNTIL REPORT GIVEN TO ONCOMING RN.
[2019-05-17 10:22] LABS: Vancomycin, Trough 16.2 ug/mL (5.0-10.0)
[2019-05-17 16:07] LABS: Magnesium, Blood 2.5 mg/dL (1.6-2.4); Phosphorus, Blood 2.6 mg/dL (2.5-4.9)
[2019-05-17 16:12] LABS: Anion Gap 10 mmol/L (6-16); Blood Urea Nitrogen 41 mg/dL (8-24); Bun/Creatinine Ratio 75.6 (12.0-20.0); CO2, Blood 25 mmol/L (21-32); Calcium, Blood 8.3 mg/dL (8.5-10.1); Chloride, Blood 106 mmol/L (98-108); Creatinine, Blood 0.54 mg/dL (0.40-1.00); Glomerular Filtration Rate >60 (60-); Glucose, Blood 191 mg/dL (70-99); Potassium, Blood 3.8 mmol/L (3.5-5.5); Sodium, Blood 141 mmol/L (136-145)
--- NOTE | 2019-05-17 19:57 | NUR ---
SHIFT SUMMARY: PT CONTINUES ON IV ABO FOR PNA, CONTINUES ON BIPA 55% FIO2 SATS ABOVE 90%. PT EPISODES OF BEING HOT DUE TO MS, ICE PACK AND COLD TOWEL IMPLEMENTED. PT GIVEN MORPHINE X 2 FOR SOB/AIRHUNGER AND WAS EFFECTIVE. PALLIATIVE CARE CONSULTED, SON TO COME IN FROM [place] TO SEE PT. PT IN BED ALL SHIFT, REPOSITIONED Q [address] REPORT GIVEN TO ONCOMING SHIFT
[2019-05-18 04:29] LABS: BASOPHILS ABSOLUTE AUTO 0.04 K/mm3 (0.00-0.23); BASOPHILS PERCENT AUTO 0 % (0-2); EOSINOPHILS PERCENT AUTO 0 % (0-6); Hematocrit 35.6 % (33.0-51.0); Hemoglobin 12.1 g/dL (11.5-16.0); IMMATURE GRAN ABSOLUTE AUTO 0.22 K/mm3 (0.00-0.10); IMMATURE GRAN PERCENT AUTO 2 % (0-1); LYMPHOCYTES ABSOLUTE AUTO 0.94 K/mm3 (0.84-5.20); LYMPHOCYTES PERCENT AUTO 8 % (21-46); MONOCYTES ABSOLUTE AUTO 0.47 K/mm3 (0.16-1.47); MONOCYTES PERCENT AUTO 4 % (4-13); Mean Corpuscular HGB 30.7 pg (26.0-34.0); Mean Corpuscular Volume 90 fL (80-100); Mean Platelet Volume 11.5 fL (9.1-12.4); NEUTROPHILS ABSOLUTE AUTO 10.23 K/mm3 (1.96-9.15); NEUTROPHILS PERCENT AUTO 86 % (41-73); NRBC ABSOLUTE 0.09 K/mm3 (0.00-0.02); NRBC Auto 0.8 /100 WBC (0.0-0.2); Platelet Count 235 K/mm3 (150-400); RDW Coefficient Variation 16.2 % (11.7-14.2); RDW Standard Deviation 53.3 fL (35.1-46.3); Red Blood Cell Count 3.94 M/mm3 (3.80-5.20)
[2019-05-18 04:55] LABS: Anion Gap 11 mmol/L (6-16); Blood Urea Nitrogen 46 mg/dL (8-24); Bun/Creatinine Ratio 79.4 (12.0-20.0); CO2, Blood 27 mmol/L (21-32); Calcium, Blood 8.4 mg/dL (8.5-10.1); Chloride, Blood 101 mmol/L (98-108); Creatinine, Blood 0.58 mg/dL (0.40-1.00); Glomerular Filtration Rate >60 (60-); Glucose, Blood 149 mg/dL (70-99); Potassium, Blood 3.3 mmol/L (3.5-5.5); Sodium, Blood 139 mmol/L (136-145)
--- NOTE | 2019-05-18 06:09 | NUR ---
SHIFT SUMMARY PT SLEEPING IN ROOM COMFORTABLY AT THIS TIME. PT SLEPT WELL AT TIMES T/O NIGHT. PT DENIED ANY CP T/O NIGHT. PT HAD PERIODS OF TACHYPNEA WHILE AWAKE, AND REMAINED ON BIPAP T/O NIGHT. PT TOLERATED VERY SHORT BREAKS FOR WATER AND MEDICATIONS. RESP UNLEVEN AND TACHY AT TIMES ON BIPAP W/ 55% FiO2 SATS >92%. PT MAIN COMPLAINT T/O NIGHT WAS TEMPERATURE CONTROL. PT HAS HX OF MS AND HAS POOR THERMOREGULATION, ICE PACKS PLACED IN GROIN AND BEHIND NECK REPEATEDLY T/O NIGHT, W/ FAN POINTED AT FACE. DENIED OTHER NEEDS. CALL LIGHT IN REACH. WILL GIVE BEDSIDE REPORT TO ONCOMING RN.
--- NOTE | 2019-05-18 12:44 | NUR ---
Review of patient with bedside nurs. Pt has good rapport with her nurse and able to easily express her wishes. Pt wanting a rest from Bipap and to eat. Sat pt up and put neck roll on patient. She has a wobbly head and cannot move her expremities only small hand movments with great effort. Respirations labored and accessory use and diapphramatic breathing. Pt voice weak, minimal lifting of head and poor eye contact. She wavers between hot and cold wants balnkets on and off and fan adjusted. She can express her needs but has difficulty following a conversation and drifts off. Theraputic time with patient. Break from bipap, oxygen needs are high but able to head strength and conditioning coach her and keep sats up. She had some ice cream and water. opened blinds and had her look outside at [place] and talk about being outside and not stressed. She relayed she misses her and she has a pre-paid cremation with [facility]. She wants her son to [place] both [place] the river and free them so they will always be together. Aknoledged her good plan. Encouraged her to use morphine for air hunger and ventilatory stress she agreed. Nursing placed back on bipap and prn meds given pt resting. Spoke with Shahla her vehicle care specialist. States they are coming in today and son will be in today. REview of diagnositcs, assessment and physican notes. Review of prognosis and ventilation stres. Review of how the patient has been doing the past few months she relays a steady decline with more bouts of illness and infection. Suggested she is showing s/s of end of life and has confirmed she does not want any strong life supportive measure. Review of potential suffering due to ventilation. directory carrier relays understanding of prognosis and her reluctance due to her love and attachemt to her. She will make sure son has information and update. They will be in today. Suggest when we transtion to comfort measures to keep bipap for comfort until we medicate her effectively for ventilatory stress.
--- NOTE | 2019-05-18 13:23 | NUR ---
Patient gave this student permission to participate in care. Patient is sitting upright on Bipap able to respond verbally in brief statements related to respiratory distress R38 @94% fiO2 @55%. Patient is A&Ox3.
--- NOTE | 2019-05-18 18:21 | NUR ---
SHIFT SUMMARY PT IS ALERT & ORIENTED, ABLE TO MAKE NEEDS KNOWN. BIPAP REMAINS ON AND CURRENTLY IN PLACE, PT WAS ABLE TO TOLERATE SHORT BREAKS, WITH THE LONGEST UP TO 15 MINUTES. LUNGS ARE COARSE THROUGH OUT WITH NON-PRODUCTIVE OCCASIONAL COUGH. TELEMETRY SHOWS PT IN A SINUS RHYTHM, VITALS HAVE REMAINED STABLE. PT APPEARS TO BE DIURISING APPROPRIATELY, HOWEVER UNABLE TO MEASURE PT IS INCONTINENT. PALLITIVE CARE SAW PT TODAY, PT'S SON SHOULD BE ARRIVING THIS EVENING PER PT'S CAREGIVERS.
--- NOTE | 2019-05-19 05:45 | NUR ---
SHIFT SUMMARY PT SLEEPING IN ROOM COMFORTABLY AT THIS TIME. NO ACUTE CHANGES IN STATUS T/O NIGHT. PT SLEPT WELL, WOKE OCCASIONALY TO ASK FOR BREAKS OFF BIPAP, AND FOR WATER. PT WAS ABLE TO TOLERATE LONGER BREAKS FROM BIPAP TONIGHT ON 15L HIGH FLOW CANULA. RESP TACHY AND SHALLOW AT TIMES W/ SATS >93% ON BIPAP AND 88-92% ON 15L HIGH FLOW. PT CONTINUES TO HAVE THERMOREGULATION ISSUES, AND BEDSIDE FAN IS IN PLACE, ICE PACKS HAVE ERICA PLACED IN PT GROIN AT PT REQUEST TO HELP KEEP PT COOL. PT DENIED CP, AND WAS MEDICATE FOR ANXIETY TWICE DURIG NOT TO BETTER TOLERATE BIPAP MASK. DENIED OTHER NEEDS. CALL LIGHT IN REACH.
--- NOTE | 2019-05-19 12:25 | NUR ---
Pt is now on comfort care. Alma reports that she understands that she will not live much longer. Her appetite has dimished and she reports working to breath. She is on an oximizer currently and maintaining sats in low 90s. Requested for staff to medicate with some roxinol for increased work of breathing. Alma is hopeful to go home and knows that she is going to need more care than she was previously getting. She reports caregivers come to her home 8:30a-3:30p and again from 6-9p daily. KEN Moseley, is working with caregivers to see if additional hours might be available. Alma has no other complaints at this time. Repositioned her in bed as she ate very little for lunch today. Updated Lorelei with Alma's address and Lorelei reports that she spoke with caregivers and that they will work with Alma to get 24 hour coverage. They are hopeful to get Alma home today with [facility]. Lorelei is working with caregivers on dc planning at this time. Alma reports her son visited this morning when Dr. Chavira made her rounds and is aware of the plan to start comfort care and plan for hospice. PC will conitnue to follow for symptom managment.
--- NOTE | 2019-05-19 14:35 | NUR ---
Spiritual care visit conducted. Patient tells me that she only has days left and that she is going home on hospice tomorrow. Patient's son, Aleksander and daughter in law, Aldo, are bedside. Patient also explains that she is ready to and thinks that just slipping off in her sleep is a great way to go especially after her 30 year burch with MS. Patient believes that their are alot of gods through out the world and that some are menacing and some are kind. I ask if there is a possibility that there is a God that could love her and cares deeply about the suffering she has endured and endure today. Patient does believe that wherever her is (who 10 years ago) that's where she will be and they will be ornery together. I listen empathically, reinforce helpful attitudes, normalize patient's experience and provide a calming presence. Patient and family respond well and show signs of improved hope in dire circumstances. I will continue to remain available to patient and family.
--- NOTE | 2019-05-19 17:55 | NUR ---
SHIFT NOTE PT IS ALERT, SLIGHTLY SLOW TO RESPOND, HAS MILDLY GARBLED SPEECH WHICH HAS BEEN CONSISTANT T/O THE SHIFT. PT'S SON AND CAREGIVERS HAVE BEEN AT BEDSIDE T/O THE DAY. PT WAS PLACED ON HOSPICE CARE TODAY, PT WISHES TO RETURN HOME, WILL BE GOING HOME TOMORROW ON HOSPICE AROUND 1400 PER RODERICK
--- NOTE | 2019-05-20 05:17 | NUR ---
SHIFT SUMMARY PT SLEEPING IN ROOM COMFORTABLY AT THIS TIME. NO ACUTE CHANGES IN STATUS. PT SLEPT WELL T/O NIGHT. WOKE OCCASIONALLY AND WAS MEDICATED FOR ANXIETY AND AIR HNGER PER EMAR. PT REMAINED ON 15L OXIMIZER T/O NIGHT DECLINED USING BIPAP. PT TO TO BE DISCHARGED HOME ON HOSPICE TODAY.
[2019-05-20] MEDS ORDERED: ACET325 (11:05)
[2019-05-20] MEDS ORDERED: HALO2 (11:06)
[2019-05-20] MEDS ORDERED: Ativan1 MG (11:06)
[2019-05-20] MEDS ORDERED: MELATONIN5 M1 (11:07)
[2019-05-20] MEDS ORDERED: MORP20L (11:07)
[2019-05-20] MEDS ORDERED: ONDA4ODT MM (11:11)
[2019-05-20] MEDS ORDERED: MORP10S NEB (11:11)
[2019-05-20] MEDS ORDERED: Phenergan25 MG (11:12)
[2019-05-20] MEDS ORDERED: Transderm-Scop1 EACH TD (11:12)
[2019-05-20] MEDS ORDERED: TRAZ50 (11:12)
--- NOTE | 2019-05-20 13:00 | NUR ---
Comfort care visit Met with pt and her son and DIL in her room. She is going to be discharged this afternoon at 2:30. They are waiting on oxygen equipment to be delivered prior to going home. Alma is anxious to go home, she is tired of being in the hospital. She reports she has no discomfort, she states that she just can't take a deep breath. Declines any roxinol or ativan at this time. Pt and family looking forward to going home and have no questions at this time.
--- NOTE | 2019-05-20 14:45 | NUR ---
PT D/C TO HOSPICE, PT OTD WITH [facility], PT WITH PT THEY EXPRESS UNDERSTANDING OF DC TEACHING, ALL BELONGINGS RETURNED TO PT
== END 2019-05-20 14:37 | disposition hospice, home (50) | DRG 871 ==
LOC: ER 09:47 → PCU 16:19 → ERHOLD 16:19 → MEDS 16:19 → PCU 05-14 10:00
PROVIDERS: Emergency Medicine; Internal Medicine; Internal Medicine Gastroenterology; Pharmacist; Pharmacist Pharmacotherapy; ADMIT Family Medicine
PROC: 5A09357 Assistance with Respiratory Ventilation, Less than 24 Consecutive Hours, Continuous Positive Airway Pressure (ICD-10-PCS; principal; 2019-05-14)
DX: A41.89 Other specified sepsis (principal); J12.3 Human metapneumovirus pneumonia; J96.01 Acute respiratory failure with hypoxia; I50.21 Acute systolic (congestive) heart failure; E78.5 Hyperlipidemia, unspecified; I05.0 Rheumatic mitral stenosis; I10 Essential (primary) hypertension; M81.0 Age-related osteoporosis without current pathological fracture; I11.0 Hypertensive heart disease with heart failure; J44.9 Chronic obstructive pulmonary disease, unspecified; F17.210 Nicotine dependence, cigarettes, uncomplicated; F41.9 Anxiety disorder, unspecified; F32.9 Major depressive disorder, single episode, unspecified; Z66 Do not resuscitate; Z79.899 Other long term (current) drug therapy; Z99.3 Dependence on wheelchair; Z79.1 Long term (current) use of non-steroidal anti-inflammatories (NSAID); Z88.5 Allergy status to narcotic agent; Z87.440 Personal history of urinary (tract) infections; Z79.51 Long term (current) use of inhaled steroids
CPT/HCPCS: 0099U; 36415; 36600; 71045; 71046; 80048; 80053; 80069; 80202; 82803; 82947; 83605; 83735; 83880; 84100; 84145; 84484; 85025; 87040; 93005; 93010; 94640; 94660; 94760; 94762; 96365; 96367; 96372-59; 96375; 99285-25; A9270; A9270-GY; C8929; J0456; J0696; J1642; J1650; J1940; J1956; J2060; J2270; J2405; J2543; J2930; J3370; J3480; J7030; J7040; J7050; J7120; Q9957